=== PATIENT | male | born 1960 | race Caucasian/White ===

== ENCOUNTER 2019-02-07 12:01 | Day surgery (SDC) | payer OTHER | END 2019-02-07 16:30 | disposition home or self-care (01) | LOC: JASU-SURG 12:01 ==

== ENCOUNTER 2019-05-23 17:07 | Observation (INO) | payer BC, OTHER ==
[2019-05-23] MEDS ORDERED: ASPIRIN 81 MG CHEWABLE TABLETS PO ONE ×2 (17:44→19:43)
--- NOTE | 2019-05-23 17:44 | PDOC ---
Rapid Medical Evaluation Time Seen by Provider: 05/23/19 17:40 Medical Evaluation: Allergies Allergy/AdvReac Type Severity Reaction Status Date / Time No Known Allergies Allergy Verified 02/07/19 13:12 05/23/19 17:40 Pt presents to the ER after having an abnormal EKG in Dr. Gaines's office. The patient had chest pain yesterday which has since resolved. Took a baby aspirin this morning Exam: NAD, ambulatory. RRR S1S2, (-) m/r/g Orders; labs, ekg, cxr Pt to proceed to the ER for further evaluation Discharge Disposition - Diagnosis Abnormal EKG - Referrals - Patient Instructions - Post Discharge Activity
[2019-05-23 17:45] VITALS: BMI 28.6
[2019-05-23 18:37] LABS: BASO % 1.2 % (0-2.0); EOS % 5.6 % (0-4.5); HEMATOCRIT 43.5 % (35.4-49); HEMOGLOBIN 14.8 GM/dL (11.7-16.9); LYMPH % 28.6 % (8-40); MCH 33.7 pg (25.7-33.7); MEAN CELL VOLUME 99.2 fl (80-96); MEAN PLT VOLUME 8.9 fl (7.5-11.1); MONO % 8.1 % (3.8-10.2); NEUT % 56.5 % (42.8-82.8); PLATELET COUNT 251 K/MM3 (134-434); RBC 4.39 M/mm3 (4.00-5.60)
[2019-05-23 18:46] LABS: INR 0.97 (0.83-1.09); PROTHROMBIN TIME (PATIENT) 11.5 SEC (9.7-13.0)
[2019-05-23] MEDS ORDERED: ASPIRIN 81 MG CHEWABLE TABLETS ONE ×2 (18:58→19:53)
[2019-05-23 19:08] LABS: ALBUMIN 4.1 g/dl (3.4-5.0); ALK PHOS 83 U/L (45-117); ANION GAP 6 MMOL/L (8-16); BILIRUBIN,TOTAL 0.5 mg/dL (0.2-1); BLOOD UREA NITROGEN 16.6 mg/dL (7-18); CALCIUM 9.2 mg/dL (8.5-10.1); CHLORIDE 105 mmol/L (98-107); CO2 29 mmol/L (21-32); CREATININE 0.9 mg/dL (0.55-1.3); GLUCOSE,RANDOM 221 mg/dL (74-106); MAGNESIUM 2.6 mg/dL (1.8-2.4); POTASSIUM 4.5 mmol/L (3.5-5.1); SGOT/AST 25 U/L (15-37); SGPT/ALT 48 U/L (13-61); SODIUM 140 mmol/L (136-145); TOT PROT 6.7 g/dl (6.4-8.2)
--- NOTE | 2019-05-23 21:03 | PN ---
Teaching Attending Note Name of Resident: Ariana Howell ATTENDING PHYSICIAN STATEMENT I saw and evaluated the patient. I reviewed the resident's note and discussed the case with the resident. I agree with the resident's findings and plan as documented. SUBJECTIVE: Patient is a 59 year old man with PMH of HTN, HLD, Carpal tunnel syndrome, Insulin-treated DM (insulin pump) and Tobacco use sent from PCP's office to the ER for an abnormal EKG. Reportedly had chest pain yesterday. Since then, he has been pain free. Currently denies fever, URI symptoms, SOB, Abdominal pain, Headache, Dizziness, Nausea, Vomiting, Calf pain/swelling or dysuria. Had negative treadmill cardiac stress test in August 2018. Has FH of cancer, but no FH of premature CAD. OBJECTIVE: Alert Vital Signs Period Temp Pulse Resp BP Sys/South Pulse Ox Last 24 Hr 97.5 F-98.1 F 64-70 16-20 140-151/57-86 98-99 HEENT: No Jaundice, eye redness or discharge, PERRLA, EOMI. Normocephalic, atraumatic. External ears are normal and hearing is grossly intact. No nasal discharge. Neck: Supple, nontender. No palpable adenopathy or thyromegaly. No JVD Chest: Good effort. Clear to auscultation and percussion. Heart: Regular. No S3, rub or murmur Abdomen: Not distended, soft, nontender and no HSM. No rebound or guarding. Normal bowel sounds. Ext: Peripheral pulses intact. No leg edema. Skin: Warm and dry. No petechiae, rash or ecchymosis. Neuro: Alert. Oriented x3. CN 2-12 grossly intact. Sensation grossly intact in all four extremities and DTR are symmetric. Psych: Appropriate mood and affect. Good insight. Home Medications Medication Instructions Recorded Aspirin Coated [Ecotrin -] 81 mg PO DAILY 02/06/19 Atorvastatin Ca [Lipitor] 40 mg PO HS 02/06/19 Insulin Pump [Insulin Pump - (Nf)] 1 each NR TID 02/06/19 Metoprolol Succinate 50 mg PO DAILY 02/06/19 Multivitamin [One-Daily 1 each PO DAILY 02/06/19 Multi-Vitamin] [place]-3/Dha/Epa/Fish Oil [[place] 3 1 each PO DAILY 02/06/19 500 Softgel] Hydrocodone/Acetaminophen 1 each PO Q6H #20 tablet MDD 4 02/07/19 [Hydrocodone-Acetamin 5-325 mg] Lotrel 1 tab PO DAILY 02/07/19 Abnormal Lab Results 05/23/19 05/23/19 18:24 18:24 MCV 99.2 H Eosinophils % 5.6 H Anion Gap 6 L Random Glucose 221 H Magnesium 2.6 H ASSESSMENT AND PLAN: 1. Chest pain - Now pain free. Has risk factors for CAD. Has had a total of 324 mg Aspirin today. EKG from his PCP's office showed NSR with T wave inversion in leads III, aVF, V1-V4, while repeat EKG in the ER showed LBBB (?new - no other prior EKGs for comparison). Initial troponin is negative. No acute abnormality on CXR. Will admit to telemetry to rule out ACS, get ECHO, fasting lipids and consult Cardiology. Urinalysis and urine toxicology screen are pending. Will continue comprehensive care of all his comorbid conditions. Elevated serum magnesium likely iatrogenic - will repeat after adequate hydration. 2. DM For now, we will hold the home diabetes drugs and implement sliding scale insulin regimen. Provide comprehensive diabetes care with patient teaching and counseling about the importance of adherence to prescribed diabetes regimen, euglycemia, eye care and foot care. 3. Tobacco Use Counseled on risks associated with tobacco use. We will provide patient all the necessary assistance to facilitate smoking cessation and prescribe Nicotine patch. 4. Overweight Counseled on the risks associated with being overweight. Will provide patient all the necessary assistance, counseling and positive reinforcement to facilitate weight loss. Consult reinforcing bar setter. 5. Hypertension - Restart suitable outpatient antihypertensive drugs when clinically appropriate. Revise regimen to ensure [id number] excellent BP control and phone counselor patient on the injurious effects of uncontrolled hypertension. Nonpharmacologic measures to control hypertension like weight loss , salt restriction and exercise discussed. Importance of adherence to treatment regimen and attainment of normotension emphasized. 6. DVT prophylaxis - Lovenox 40 mg SQ q 24 hours. 7. Advance directives - Full code
--- NOTE | 2019-05-23 21:29 | PDOC ---
History of Present Illness - General Chief Complaint: Chest Pain Stated Complaint: SENT BY PCP Time Seen by Provider: 05/23/19 17:40 History Source: Patient Exam Limitations: No Limitations Past History - Past Medical History Allergies/Adverse Reactions: Allergies Allergy/AdvReac Type Severity Reaction Status Date / Time No Known Allergies Allergy Verified 05/23/19 17:41 Home Medications: Ambulatory Orders Aspirin Coated [Ecotrin -] 81 mg PO DAILY 02/06/19 Atorvastatin Ca [Lipitor] 40 mg PO HS 02/06/19 Insulin Pump [Insulin Pump - (Nf)] 1 each NR TID 02/06/19 Metoprolol Succinate 50 mg PO DAILY 02/06/19 Multivitamin [One-Daily Multi-Vitamin] 1 each PO DAILY 02/06/19 [place]-3/Dha/Epa/Fish Oil [[place] 3 500 Softgel] 1 each PO DAILY 02/06/19 Hydrocodone/Acetaminophen [Hydrocodone-Acetamin 5-325 mg] 1 each PO Q6H #20 tablet MDD 4 02/07/19 Lotrel 40 1 tab PO DAILY 02/07/19 Anemia: No Asthma: No Cancer: No Cardiac Disorders: No CVA: No COPD: No CHF: No Dementia: No Diabetes: Yes GI Disorders: No Disorders: No HTN: Yes Hypercholesterolemia: Yes Liver Disease: No Seizures: No Thyroid Disease: No - Surgical History Orthopedic Surgery: Yes (jacinto rotator cuff) - Immunization History Immunization Up to Date: No - Suicide/Smoking/Psychosocial Hx Smoking History: Current some day smoker Have you smoked in the past 12 months: Yes Number of Cigarettes Smoked Daily: 4 If you are a former smoker, when did you quit?: 2weeks Information on smoking cessation initiated: Yes 'Breaking Loose' booklet given: 02/07/19 Hx Alcohol Use: Yes Drug/Substance Use Hx: No Substance Use Type: Alcohol Hx Substance Use Treatment: No Cardiac Specific PMH - Complaint Specific PMHX Pacemaker: No *Physical Exam - Vital Signs Last Vital Signs Temp Pulse Resp BP Pulse Ox 98.0 F 65 20 151/65 99 05/23/19 20:31 05/23/19 20:31 05/23/19 20:31 05/23/19 20:31 05/23/19 20:31 - Physical Exam General Appearance: No: Apparent Distress Respiratory/Chest: positive: Lungs Clear, Normal Breath Sounds. negative: Respiratory Distress Cardiovascular: positive: Regular Rhythm, Regular Rate, S1, S2. negative: Murmur Gastrointestinal/Abdominal: positive: Normal Bowel Sounds, Soft. negative: Tender, Distended, Guarding, Rebound Extremity: negative: Pedal Edema, Swelling, Calf Tenderness Neurologic: positive: Alert, Normal Mood/Affect Heart Score/ECG Review - History History: Slightly suspicious - Electrocardiogram EKG: Non specific repolarization disturbance - Age Age: 45-65 - Risk Factors Risk Factors Heart Score: Yes Hx Hypercholesterolemia, Yes Hx Hypertension, Yes Hx Diabetes Based on the list above the patient has:: >/=3 risk factors or Hx atherosclerotic disease - Troponin Troponin: </= normal limit - Score Heart Score - Total: 4 ED Treatment Course - LABORATORY CBC & Chemistry Diagram: 05/23/19 18:24 05/23/19 18:24 - ADDITIONAL ORDERS Additional order review: Laboratory Results 05/23/19 05/23/19 18:24 18:24 PT with INR 11.50 INR 0.97 Sodium 140 Potassium 4.5 Chloride 105 Carbon Dioxide 29 Anion Gap 6 L BUN 16.6 Creatinine 0.9 Est GFR (CKD-EPI)AfAm 108.73 Est GFR (CKD-EPI)NonAf 93.82 Random Glucose 221 H Calcium 9.2 Magnesium 2.6 H Total Bilirubin 0.5 AST 25 ALT 48 Alkaline Phosphatase 83 Creatine Kinase 101 Troponin I < 0.02 Total Protein 6.7 Albumin 4.1 05/23/19 18:24 RBC 4.39 MCV 99.2 H MCHC 34.0 RDW 13.0 MPV 8.9 Neutrophils % 56.5 Lymphocytes % 28.6 Monocytes % 8.1 Eosinophils % 5.6 H Basophils % 1.2 - RADIOLOGY Radiology Studies Ordered: Category Date Time Status CHEST PA & LAT [RAD] Stat Radiology 05/23/19 19:03 Taken - Medications Given in the ED: ED Medications Discontinued Medications Generic Name Dose Route Start Last Admin Trade Name Freq PRN Reason Stop Dose Admin Aspirin 162 mg 05/23/19 17:44 05/23/19 19:07 Asa - PO 05/23/19 17:45 162 mg ONCE ONE Administration Aspirin 81 mg 05/23/19 19:43 05/23/19 19:56 Asa - PO 05/23/19 19:44 81 mg ONCE ONE Administration Medical Decision Making - Medical Decision Making 59 y/o N hx of HTN, HLD, T1DM, former smoker (quit this year; sates was off and on for several years) was sent by his PCP, Dr. Gaines for abnormal EKG performed in office today. Patient mentions having brief episode of substernal, nonradiating CP 2 days ago, while using computer. Then, had another episode yesterday. Since then, he has been CP free. Currently denies fever, URI sxs, sob , abd pain, n/v, calf pain/swelling. Had negative stress test Aug [address] Gaines: NSR at 68 bpm, TWI lead III, aVF, V3-V4 (no other prior EKGs to compare to) Repeat EKG here: NSR at 68 bpm Trop negative Patient with new LBBB D/W cardio, Dr. Almanzar - recommends admission for now given patient chest pain free and trop negative; will see patient inhouse Patient took 1 baby ASA at home and received 3 baby ASA in ED 05/23/19 21:27 *DC/Admit/Observation/Transfer Diagnosis at time of Disposition: Abnormal EKG Chest pain Qualifiers: Chest pain type: unspecified Qualified Code(s): R07.9 - Chest pain, unspecified - Discharge Dispostion Condition at time of disposition: Stable Decision to Admit order: Yes - Referrals - Patient Instructions - Post Discharge Activity
[2019-05-23] MEDS ORDERED: ATORVASTATIN CA 40 MG TABLET (FP) PO SCH (22:00)
--- NOTE | 2019-05-23 22:43 | HP ---
CHIEF COMPLAINT: chest pain, EKG changes PCP:Dr Gaines HISTORY OF PRESENT ILLNESS: Patient is a 59 year old male with past medical history of HTN, HLD, IDDM, Psoriasis, presented to the ED from his PCP's office for chest pain and was found to have abnormal EKG changes. Patient reported experiencing chest pain two days ago which he described as substernal, 10/10 chest tightness, lasting a few seconds, that occurred at rest. A second episode occurred yesterday of the same quality. Today, he was seen at his Dr. Gaines's office for his routine follow up where he reported the chest pain, and EKG was done which showed TWI lead III, aVF, V3-V4. At the ED, EKG was done which showed LBBB. Of note, patient reported that he had a stress test done in Aug 2018 because he was found to have an LBBB on EKG. Stress test was reported to be normal. ER course was notable for: (1)ASA 243mg x1 (2) (3) Recent Travel: denies PAST MEDICAL HISTORY: HTN HLD IDDM Psoriasis PAST SURGICAL HISTORY: Left knee repair B/L shoulder repair Social History: Smokin pack years Alcohol:occasional EtOH drinker Drugs: denies Family History: Father - prostate CA Mother - Breast Ca, Colon Ca Allergies No Known Allergies Allergy (Verified 05/23/19 17:41) HOME MEDICATIONS: Home Medications Medication Instructions Recorded Aspirin Coated [Ecotrin -] 81 mg PO DAILY 02/06/19 Metoprolol Succinate 50 mg PO DAILY 02/06/19 Multivitamin [One-Daily 1 each PO DAILY 02/06/19 Multi-Vitamin] [place]-3/Dha/Epa/Fish Oil [[place] 3 1 each PO DAILY 02/06/19 500 Softgel] REVIEW OF SYSTEMS CONSTITUTIONAL: Absent: fever, chills, diaphoresis, generalized weakness, malaise, loss of appetite, weight change HEENT: Absent: rhinorrhea, nasal congestion, throat pain, throat swelling, difficulty swallowing, mouth swelling, ear pain, eye pain, visual changes CARDIOVASCULAR: Absent: chest pain, syncope, palpitations, irregular heart rate, lightheadedness , peripheral edema RESPIRATORY: Absent: cough, shortness of breath, dyspnea with exertion, orthopnea, wheezing, stridor, hemoptysis GASTROINTESTINAL: Absent: abdominal pain, abdominal distension, nausea, vomiting, diarrhea, constipation, melena, hematochezia GENITOURINARY: Absent: dysuria, frequency, urgency, hesitancy, hematuria, flank pain, genital pain MUSCULOSKELETAL: Absent: myalgia, arthralgia, joint swelling, back pain, neck pain SKIN: Absent: rash, itching, pallor HEMATOLOGIC/IMMUNOLOGIC: Absent: easy bleeding, easy bruising, lymphadenopathy, frequent infections ENDOCRINE: Absent: unexplained weight gain, unexplained weight loss, heat intolerance, cold intolerance NEUROLOGIC: Absent: headache, focal weakness or paresthesias, dizziness, unsteady gait, seizure, mental status changes, bladder or bowel incontinence PSYCHIATRIC: Absent: anxiety, depression, suicidal or homicidal ideation, hallucinations. PHYSICAL EXAMINATION Vital Signs - 24 hr 05/23/19 05/23/19 05/23/19 17:41 19:09 19:44 Temperature 98.1 F 97.5 F L Pulse Rate 70 Pulse Rate [ 64 Left Apical] Respiratory 16 Rate Blood Pressure 140/57 L Blood Pressure 144/86 [Left Arm] O2 Sat by Pulse 98 99 99 Oximetry (%) 05/23/19 20:31 Temperature 98.0 F Pulse Rate Pulse Rate [ 65 Left Apical] Respiratory 20 Rate Blood Pressure Blood Pressure 151/65 [Left Arm] O2 Sat by Pulse 99 Oximetry (%) GENERAL: Awake, alert, and fully oriented, in no acute distress. HEAD: Normal with no signs of trauma. EYES: PERRLA, EOMI, sclera anicteric, conjunctiva clear. EARS, NOSE, THROAT: Moist mucous membranes. NECK: Normal range of motion, supple without lymphadenopathy, JVD, or masses. LUNGS: Breath sounds equal, clear to auscultation bilaterally. HEART: Regular rate and rhythm, normal S1 and S2 without murmur, rub or gallop. ABDOMEN: Soft, nontender, not distended, normoactive bowel sounds. MUSCULOSKELETAL: Normal range of motion at all joints. UPPER EXTREMITIES: 2+ pulses, warm, well-perfused. No peripheral edema. LOWER EXTREMITIES: 2+ pulses, warm, well-perfused. No peripheral edema. NEUROLOGICAL: Cranial nerves II-XII intact. Normal speech. Normal gait. PSYCHIATRIC: Cooperative. Good eye contact. Appropriate mood and affect. SKIN: Warm, dry, normal turgor. Laboratory Results - last 24 hr 05/23/19 05/23/19 05/23/19 18:24 18:24 18:24 WBC 9.0 RBC 4.39 Hgb 14.8 Hct 43.5 MCV 99.2 H MCH 33.7 MCHC 34.0 RDW 13.0 Plt Count 251 MPV 8.9 Absolute Neuts (auto) 5.1 Neutrophils % 56.5 Lymphocytes % 28.6 Monocytes % 8.1 Eosinophils % 5.6 H Basophils % 1.2 Nucleated RBC % 0 PT with INR 11.50 INR 0.97 Sodium 140 Potassium 4.5 Chloride 105 Carbon Dioxide 29 Anion Gap 6 L BUN 16.6 Creatinine 0.9 Est GFR (CKD-EPI)AfAm 108.73 Est GFR (CKD-EPI)NonAf 93.82 Random Glucose 221 H Calcium 9.2 Magnesium 2.6 H Total Bilirubin 0.5 AST 25 ALT 48 Alkaline Phosphatase 83 Creatine Kinase 101 Troponin I < 0.02 Total Protein 6.7 Albumin 4.1 ASSESSMENT/PLAN: Patient is a 59 year old male with past medical history of HTN, HLD, IDDM, Psoriasis, presented to the ED from his PCP's office for chest pain and was found to have abnormal EKG changes. #Chest pain, rule out ACS -Trop <0.02 x1 -EKG showing LBBB, different from EKG at PCP office -will repeat EKG in am -Received ASA 324mg today -Cardiology (Dr. Almanzar) consulted. Recommendations appreciated. -will continue to monitor on tele -trend trop -continue ASA 81mg daily and Toprol XL 50mg daily #HTN -On Metoprolol 50mg daily #HLD -Continue Lipitor 40mg daily #IDDM -BGM ACHS -Patient prefers to be on Insulin pump #FEN -Not on any standing fluids -Electrolytes wnl, routine bmp monitoring -Diabetic/sodium restricted diet #Prophylaxis -Lovenox 40mg sq daily #Disposition -full code -tele obs Visit type - Emergency Visit Emergency Visit: Yes ED Registration Date: 05/23/19 Care time: The patient presented to the Emergency Department on the above date and was hospitalized for further evaluation of their emergent condition. - New Patient This patient is new to me today: Yes Date on this admission: 05/23/19 - Critical Care Critical Care patient: No ATTENDING PHYSICIAN STATEMENT I saw and evaluated the patient. I reviewed the resident's note and discussed the case with the resident. I agree with the resident's findings and plan as documented. SUBJECTIVE: OBJECTIVE: ASSESSMENT AND PLAN:
[2019-05-23] MEDS ORDERED: ATORVASTATIN CA 40 MG TABLET (FP) ONE (23:41)
[2019-05-23] MEDS ORDERED: DEXTROSE 50%-WATER - 25 GM/50 ML VIAL IVPUSH ONE (23:50)
[2019-05-23] MEDS ORDERED: DEXTROSE 50%-WATER 25 GM/50 ML DISP.SYRIN ONE (23:52)
[2019-05-24 07:32] LABS: BASO % 0.7 % (0-2.0); HEMATOCRIT 42.4 % (35.4-49); HEMOGLOBIN 14.5 GM/dL (11.7-16.9); LYMPH % 20.6 % (8-40); MCH 33.9 pg (25.7-33.7); MCHC 34.2 g/dl (32.0-35.9); MEAN PLT VOLUME 8.7 fl (7.5-11.1); MONO % 7.3 % (3.8-10.2); NEUT % 67.4 % (42.8-82.8); PLATELET COUNT 221 K/MM3 (134-434); RBC 4.28 M/mm3 (4.00-5.60); RDW 13.1 % (11.9-15.9); WHITE BLOOD COUNT 9.3 K/mm3 (4.0-10.0)
[2019-05-24 07:36] LABS: ANION GAP 8 MMOL/L (8-16); BLOOD UREA NITROGEN 13.9 mg/dL (7-18); CALCIUM 8.7 mg/dL (8.5-10.1); CHLORIDE 103 mmol/L (98-107); CO2 26 mmol/L (21-32); CREATININE 0.7 mg/dL (0.55-1.3); GLUCOSE,RANDOM 305 mg/dL (74-106); MAGNESIUM 2.3 mg/dL (1.8-2.4); PHOSPHOROUS 2.6 mg/dL (2.5-4.9); POTASSIUM 4.5 mmol/L (3.5-5.1); SODIUM 137 mmol/L (136-145)
[2019-05-24] MEDS ORDERED: INSULIN (NOVOLOG) ASPART 100 UNITS/ML 10ML VIAL ONE (09:23)
[2019-05-24] MEDS ORDERED: ASPIRIN COATED 81 MG TABLET.EC PO SCH (10:00)
[2019-05-24] MEDS ORDERED: ENOXAPARIN NA (PORCINE) 40 MG/0.4 ML DISP.SYRIN SQ SCH (10:00)
[2019-05-24] MEDS ORDERED: INSULIN (NOVOLOG) ASPART 100 UNITS/ML 10ML VIAL SQ ONE ×2 (10:35→11:33)
--- NOTE | 2019-05-24 11:39 | PN ---
Progress Note, Physician Chief Complaint: patient seen and examined no more chest pressure since admission wants to go home bgm noted insulin ordered insulin pump not working - Current Medication List Current Medications: Active Medications Aspirin (Ecotrin -) 81 mg PO DAILY [facility] Atorvastatin Calcium (Lipitor -) 40 mg PO HS [facility] Last Admin: 05/24/19 00:02 Dose: 40 mg Enoxaparin Sodium (Lovenox -) 40 mg SQ DAILY [facility] Insulin Aspart (Novolog Vial) 6 units SQ ONCE ONE; Protocol Stop: 05/24/19 11:34 Metoprolol Succinate (Toprol Xl -) 50 mg PO DAILY [facility] - Objective Vital Signs: Vital Signs Temperature 97.6 F 05/24/19 09:27 Pulse Rate 83 05/24/19 09:27 Respiratory Rate 18 05/24/19 05:34 Blood Pressure 160/79 05/24/19 09:27 O2 Sat by Pulse Oximetry (%) 96 05/24/19 09:27 Constitutional: Yes: Calm Cardiovascular: Yes: Regular Rate and Rhythm, S1, S2 Respiratory: Yes: CTA Bilaterally Gastrointestinal: Yes: Normal Bowel Sounds, Soft Edema: No Neurological: Yes: Alert, Oriented Labs: CBC, BMP 05/24/19 06:20 05/24/19 06:20 INR, PTT INR 0.97 (0.83-1.09) 05/23/19 18:24 Problem List - Problems (1) Abnormal EKG Assessment/Plan: awaiting cardiology consult CE 3 sets negative patient claims he hada recent stress test with his hotel services supervisor at [facility] asa, statin Code(s): R94.31 - ABNORMAL ELECTROCARDIOGRAM [ECG] [EKG] (2) Chest pain Assessment/Plan: toprol cardiology consult Code(s): R07.9 - CHEST PAIN, UNSPECIFIED Qualifiers: Chest pain type: unspecified Qualified Code(s): R07.9 - Chest pain, unspecified (3) Diabetes Assessment/Plan: insulin pump not working novolog ordered Code(s): E11.9 - TYPE 2 DIABETES MELLITUS WITHOUT COMPLICATIONS Qualifiers: Diabetes mellitus type: type 1
[2019-05-24 12:36] VITALS: BP 132/81; PULSE 87; TEMP 98.5
--- NOTE | 2019-05-24 13:26 | DS ---
Physical Examination Vital Signs: Vital Signs Temperature 98.5 F 05/24/19 12:34 Pulse Rate 87 05/24/19 12:34 Respiratory Rate 15 05/24/19 09:00 Blood Pressure 132/81 05/24/19 12:34 O2 Sat by Pulse Oximetry (%) 96 05/24/19 12:34 Constitutional: Yes: Calm Cardiovascular: Yes: Regular Rate and Rhythm, S1, S2 Respiratory: Yes: CTA Bilaterally Gastrointestinal: Yes: Normal Bowel Sounds, Soft Edema: No Neurological: Yes: Alert, Oriented Labs: CBC, BMP 05/24/19 06:20 05/24/19 06:20 Discharge Summary Reason For Visit: ABNORMAL ELECTROCARIOGRAPHY/CHEST PAIN Current Active Problems Abnormal EKG (Acute) Chest pain (Acute) Diabetes (Acute) Hospital Course: CHIEF COMPLAINT: chest pain, EKG changes PCP:Dr Gaines HISTORY OF PRESENT ILLNESS: Patient is a 59 year old male with past medical history of HTN, HLD, IDDM, Psoriasis, presented to the ED from his PCP's office for chest pain and was found to have abnormal EKG changes. Patient reported experiencing chest pain two days ago which he described as substernal, 10/10 chest tightness, lasting a few seconds, that occurred at rest. A second episode occurred yesterday of the same quality. Today, he was seen at his Dr. Gaines's office for his routine follow up where he reported the chest pain, and EKG was done which showed TWI lead III, aVF, V3-V4. At the ED, EKG was done which showed LBBB. Of note, patient reported that he had a stress test done in Aug 2018 because he was found to have an LBBB on EKG. Stress test was reported to be normal. ER course was notable for: (1)ASA 243mg x1 seen by cardiology dc home Condition: Stable - Instructions Disposition: HOME - Home Medications Comprehensive Discharge Medication List: Ambulatory Orders Aspirin Coated [Ecotrin -] 81 mg PO DAILY 02/06/19 Metoprolol Succinate 50 mg PO DAILY 02/06/19 Multivitamin [One-Daily Multi-Vitamin] 1 each PO DAILY 02/06/19 [place]-3/Dha/Epa/Fish Oil [[place] 3 500 Softgel] 1 each PO DAILY 02/06/19
--- NOTE | 2019-05-24 14:31 | CON.CARD ---
Consult Consult Specialty:: Cardiology Referred by:: Ksenia Reason for Consultation:: chest pain - History of Present Illness Chief Complaint: chest pain History of Present Illness: He is a 59 year old man with a history of HTN, NIDDM, chol, psoriasis, known intermittent LBBB with normal stress test at [facility] august 2018 who was sent for brief right sternal chest pain without associated symptoms, felt like a "flip." Noted with abnormal T waves. No recurrence. TnI negative x 2. - History Source History Provided By: Patient, Medical Record - Alcohol/Substance Use Hx Alcohol Use: Yes - Smoking History Smoking history: Current some day smoker Have you smoked in the past 12 months: Yes Aproximately how many cigarettes per day: 4 If you are a former smoker, when did you quit?: 2weeks Home Medications - Allergies Allergies/Adverse Reactions: Allergies Allergy/AdvReac Type Severity Reaction Status Date / Time No Known Allergies Allergy Verified 05/23/19 17:41 - Home Medications Home Medications: Ambulatory Orders Aspirin Coated [Ecotrin -] 81 mg PO DAILY 02/06/19 Metoprolol Succinate 50 mg PO DAILY 02/06/19 Multivitamin [One-Daily Multi-Vitamin] 1 each PO DAILY 02/06/19 [place]-3/Dha/Epa/Fish Oil [[place] 3 500 Softgel] 1 each PO DAILY 02/06/19 Atorvastatin Ca [Lipitor] 40 mg PO HS #30 tablet 05/24/19 Vital Signs: Vital Signs Temperature 98.5 F 05/24/19 12:34 Pulse Rate 87 05/24/19 12:34 Respiratory Rate 15 05/24/19 09:00 Blood Pressure 132/81 05/24/19 12:34 O2 Sat by Pulse Oximetry (%) 96 05/24/19 12:34 Constitutional: Yes: No Distress, Calm Eyes: Yes: Conjunctiva Clear, EOM Intact HENT: Yes: Atraumatic, Normocephalic Neck: Yes: Trachea Midline Respiratory: Yes: CTA Bilaterally Gastrointestinal: Yes: Normal Bowel Sounds, Soft Cardiovascular: Yes: Regular Rate and Rhythm JVD: No Carotid Bruit: No PMI: Non-Displaced Heart Sounds: Yes: S1, S2 Edema: No Peripheral Pulses WNL: Yes - Other Data Labs, Other Data: CBC, BMP 05/24/19 06:20 05/24/19 06:20 INR, PTT INR 0.97 (0.83-1.09) 05/23/19 18:24 Troponin, BNP 05/23/19 05/24/19 05/24/19 18:24 01:42 06:20 Troponin I < 0.02 < 0.02 < 0.02 Troponin, BNP 05/23/19 05/24/19 05/24/19 18:24 01:42 06:20 Troponin I < 0.02 < 0.02 < 0.02 Imaging - Results EKG: Report Reviewed Assessment/Plan He is a 59 year old man with a history of HTN, NIDDM, chol, psoriasis, known intermittent LBBB with normal stress test at [facility] august 2018 who was sent for brief right sternal chest pain without associated symptoms, felt like a "flip." Noted with abnormal T waves. No recurrence. TnI negative x 2. Plan: -no ACS -given recent normal nuclear stress test would defer workup. -symptoms are atypical for CAD. -fu as outpatient with Erickson
--- NOTE | 2019-05-24 15:29 | EKG ---
Test Reason : Blood Pressure : / mmHG Vent. Rate : 068 BPM Atrial Rate : 068 BPM P-R Int : 186 ms QRS Dur : 164 ms QT Int : 462 ms P-R-T Axes : 048 -57 106 degrees QTc Int : 491 ms NORMAL SINUS RHYTHM POSSIBLE LEFT ATRIAL ENLARGEMENT LEFT AXIS DEVIATION LEFT BUNDLE BRANCH BLOCK ABNORMAL ECG NO PREVIOUS ECGS AVAILABLE Confirmed by JEFF HAYNES MD ([id number]) on 05/24/2019 3:29:09 PM Referred By: Confirmed By:JEFF HAYNES MD
== END 2019-05-24 14:00 | disposition home or self-care (01) ==
LOC: JER 17:07 → JERBED 21:33
PROVIDERS: ADMIT Internal Medicine; ATTEND Family Medicine
PROC: 3E033GC Introduction of Other Therapeutic Substance into Peripheral Vein, Percutaneous Approach (ICD-10-PCS; principal; 2019-05-23)
PROC: 3E013VG Introduction of Insulin into Subcutaneous Tissue, Percutaneous Approach (ICD-10-PCS; 2019-05-23)
DX: R94.31 Abnormal electrocardiogram [ECG] [EKG] (principal); R07.89 Other chest pain; I10 Essential (primary) hypertension; E78.5 Hyperlipidemia, unspecified; E11.9 Type 2 diabetes mellitus without complications; Z96.41 Presence of insulin pump (external) (internal); F17.210 Nicotine dependence, cigarettes, uncomplicated; E66.3 Overweight; Z68.28 Body mass index [BMI] 28.0-28.9, adult
CPT/HCPCS: 36415; 71046-TC-FY; 80048; 80053; 82550; 82962; 83735; 84100; 84443; 84484; 85025; 85610; 93005; 93010; 99285-25; G0378

== ENCOUNTER 2022-02-01 13:14 | Emergency (ER) | payer BC ==
[2022-02-01 13:57] VITALS: BP 158/72; PULSE 96; TEMP 98; BMI 30.2
[2022-02-01] MEDS ORDERED: PIPERACILLIN/TAZOB 4.5 GM 4.5 GM in DEXTROSE 5%-WATER 100 ML IVPB ONE (16:05)
[2022-02-01] MEDS ORDERED: ACETAMINOPHEN 1000 MG/100 ML BAG IVPB ONE (16:05)
[2022-02-01] MEDS ORDERED: VANCOMYCIN 1 GM in D5W (PRE-DOCKED) 1,000 MG/250 ML IVPB ONE (16:06)
[2022-02-01] MEDS ORDERED: PIPERACILLIN/TAZOB 4.5 GM 4.5 GM/100 ML BAG IVPB ONE (16:12)
[2022-02-01] MEDS ORDERED: ACETAMINOPHEN INJECTION 100 ML IVPB ONE (16:12)
[2022-02-01] MEDS ORDERED: VANCOMYCIN 1 GRAM (PRE-DOCKED) 1,000 MG/250 ML BAG IVPB ONE (16:13)
[2022-02-01 18:00] LABS: BASO % 0.6 % (0-2.0); EOS % 1.8 % (0-4.5); HEMATOCRIT 41.9 % (35.4-49); HEMOGLOBIN 14.3 GM/dL (11.7-16.9); LYMPH % 11.2 % (8-40); MCH 33.6 pg (25.7-33.7); MCHC 34.1 g/dl (32.0-35.9); MEAN CELL VOLUME 98.5 fl (80-96); MEAN PLT VOLUME 8.8 fl (7.5-11.1); MONO % 7.2 % (3.8-10.2); NEUT % 79.2 % (42.8-82.8); PLATELET COUNT 246 10^3/uL (134-434); RBC 4.25 M/mm3 (4.00-5.60); RDW 13.1 % (11.9-15.9); WHITE BLOOD COUNT 13.1 K/mm3 (4.0-10.0)
[2022-02-01 18:21] LABS: CHLORIDE 107 mmol/L (98-107); SODIUM 138 mmol/L (136-145)
[2022-02-01 18:23] LABS: CALCIUM 9.3 mg/dL (8.5-10.1)
[2022-02-01 18:24] LABS: ACTIVATED PTT 22.7 SECONDS (25.2-36.5); ALBUMIN 3.8 g/dl (3.4-5.0); BLOOD UREA NITROGEN 19.2 mg/dL (7-18); CO2 27 mmol/L (21-32); GLUCOSE,RANDOM 99 mg/dL (74-106); INR 0.98 (0.83-1.09); PROTHROMBIN TIME (PATIENT) 11.3 SEC (9.7-13.0)
[2022-02-01 18:27] LABS: CREATININE 0.9 mg/dL (0.55-1.3); SGOT/AST 70 U/L (15-37); SGPT/ALT 29 U/L (13-61)
[2022-02-01 18:28] LABS: TOT PROT 7.5 g/dl (6.4-8.2)
[2022-02-01 18:29] LABS: BILIRUBIN,TOTAL 0.8 mg/dL (0.2-1)
[2022-02-01 18:30] LABS: ALK PHOS 93 U/L (45-117)
[2022-02-01 18:32] LABS: ANION GAP 4 MMOL/L (8-16)
[2022-02-01 18:39] LABS: ERYTHROCYTE SEDIMENTATION RATE 25 mm/hr (0-20)
[2022-02-01 19:51] LABS: CALCIUM 8.9 mg/dL (8.5-10.1)
[2022-02-01 19:52] LABS: BLOOD UREA NITROGEN 19.3 mg/dL (7-18)
[2022-02-01 19:55] LABS: CREATININE 0.8 mg/dL (0.55-1.3)
== END 2022-02-01 20:11 | disposition left against medical advice (07) ==
LOC: JER 13:14
PROC: 3E03329 Introduction of Other Anti-infective into Peripheral Vein, Percutaneous Approach (ICD-10-PCS; principal; 2022-02-01)
PROC: 3E033NZ Introduction of Analgesics, Hypnotics, Sedatives into Peripheral Vein, Percutaneous Approach (ICD-10-PCS; 2022-02-01)
PROC: 3E03329 Introduction of Other Anti-infective into Peripheral Vein, Percutaneous Approach (ICD-10-PCS; 2022-02-01)
DX: L03.115 Cellulitis of right lower limb (principal); S91.331A Puncture wound without foreign body, right foot, initial encounter
CPT/HCPCS: 0241U-QW; 36415; 73630-TC-RT-FY; 80048; 80053; 85025; 85610; 85651; 85730; 86140; 86850; 86900; 86901; 87040; 99284-25

== ENCOUNTER 2022-02-02 11:02 | Inpatient (IN) | payer BC ==
[2022-02-02] MEDS ORDERED: PIPERACILLIN/TAZOB 4.5 GM 4.5 GM in DEXTROSE 5%-WATER 100 ML IVPB ONE (12:30)
[2022-02-02] MEDS ORDERED: VANCOMYCIN 1 GM in D5W (PRE-DOCKED) 1,000 MG/250 ML IVPB ONE (12:30)
[2022-02-02] MEDS ORDERED: VANCOMYCIN 1 GRAM (PRE-DOCKED) 1,000 MG/250 ML BAG IVPB ONE (12:34)
[2022-02-02] MEDS ORDERED: PIPERACILLIN/TAZOB 4.5 GM 4.5 GM/100 ML BAG IVPB ONE (12:34)
[2022-02-02 13:13] LABS: BASO % 0.4 % (0-2.0); EOS % 1.2 % (0-4.5); HEMATOCRIT 37.9 % (35.4-49); HEMOGLOBIN 12.7 GM/dL (11.7-16.9); LYMPH % 11.9 % (8-40); MCH 33.3 pg (25.7-33.7); MCHC 33.6 g/dl (32.0-35.9); MEAN CELL VOLUME 98.9 fl (80-96); MEAN PLT VOLUME 8.5 fl (7.5-11.1); MONO % 8.1 % (3.8-10.2); NEUT % 78.4 % (42.8-82.8); PLATELET COUNT 214 10^3/uL (134-434); RBC 3.83 M/mm3 (4.00-5.60); RDW 12.8 % (11.9-15.9); WHITE BLOOD COUNT 12.4 K/mm3 (4.0-10.0)
[2022-02-02 13:31] LABS: ALBUMIN 3.3 g/dl (3.4-5.0)
[2022-02-02 13:34] LABS: CREATININE 0.9 mg/dL (0.55-1.3)
[2022-02-02 13:36] LABS: BILIRUBIN,TOTAL 0.5 mg/dL (0.2-1); TOT PROT 6.3 g/dl (6.4-8.2)
[2022-02-02] MEDS ORDERED: KETOROLAC TROMETHAMINE 30 MG/1 ML VIAL ONE (16:49)
[2022-02-02] MEDS: KETOROLAC TROMETHAMINE 30 MG/1 ML VIAL IVPUSH PRN (16:49)
[2022-02-02] MEDS ORDERED: HEPARIN NA (PORCINE) 5,000 UNITS/ML 1ML VIAL SQ SCH (22:00)
[2022-02-02] MEDS: INSULIN SLIDING SCALE (NOVOLOG) 1 VIAL SQ SCH (23:04)
[2022-02-03] MEDS ORDERED: HEPARIN NA (PORCINE) 5,000 UNITS/ML 1ML VIAL ONE (00:12)
[2022-02-03] MEDS ORDERED: HYDROmorphone HCl 2 MG/ML VIAL ONE (07:45)
[2022-02-03 07:46] LABS: HEMATOCRIT 35.9 % (35.4-49); HEMOGLOBIN 12.8 GM/dL (11.7-16.9); MCH 34.2 pg (25.7-33.7); MCHC 35.5 g/dl (32.0-35.9); MEAN CELL VOLUME 96.4 fl (80-96); MEAN PLT VOLUME 8.5 fl (7.5-11.1); PLATELET COUNT 199 10^3/uL (134-434); RBC 3.73 M/mm3 (4.00-5.60); RDW 12.6 % (11.9-15.9); WHITE BLOOD COUNT 8.2 K/mm3 (4.0-10.0)
[2022-02-03] MEDS: HYDROmorphone HCl 2 MG/ML VIAL IVPB PRN (07:52)
[2022-02-03 08:13] LABS: ALBUMIN 3.1 g/dl (3.4-5.0); BLOOD UREA NITROGEN 12.9 mg/dL (7-18); CALCIUM 8.6 mg/dL (8.5-10.1)
[2022-02-03 08:17] LABS: CREATININE 0.5 mg/dL (0.55-1.3)
[2022-02-03 08:18] LABS: BILIRUBIN,TOTAL 0.8 mg/dL (0.2-1)
[2022-02-03] MEDS ORDERED: TETANUS AND DIPHTHERIA TOXOID 0.5 ML DISP.SYRIN IM ONE (08:53)
[2022-02-03] MEDS: INSULIN SLIDING SCALE (NOVOLOG) 1 VIAL SQ SCH ×4 (09:01→21:30)
[2022-02-03] MEDS ORDERED: PIPERACILLIN/TAZOB 3.375 GM 3.375 GM in DEXTROSE 5%-WATER - 50 ML IVPB SCH (10:00)
[2022-02-03] MEDS ORDERED: PIPERACILLIN/TAZOBACTAM 3.375 GM VIAL IVPB ONE (10:16)
[2022-02-03] MEDS ORDERED: DEXTROSE 5%-WATER - 50 ML IVPB ONE (10:17)
[2022-02-03 11:00] VITALS: BMI 29.5
[2022-02-03] MEDS: VANCOMYCIN/WATER 1250 MG 1,250 MG/250 ML BAG IVPB SCH (17:09)
[2022-02-03] MEDS ORDERED: DEXTROSE 5%-WATER 100 ML IVPB ONE ×2 (18:17→18:18)
[2022-02-03] MEDS ORDERED: PIPERACILLIN/TAZOBACTAM 4.5 GM VIAL IVPB ONE ×2 (18:17→18:18)
[2022-02-03] MEDS: PIPERACILLIN/TAZOB 4.5 GM 4.5 GM in DEXTROSE 5%-WATER 100 ML IVPB SCH (18:24)
[2022-02-03] MEDS: KETOROLAC TROMETHAMINE 30 MG/1 ML VIAL IVPUSH PRN (21:29)
[2022-02-03] MEDS: ATORVASTATIN CA 40 MG TABLET (FP) PO SCH (21:30)
[2022-02-04] MEDS ORDERED: PIPERACILLIN/TAZOBACTAM 4.5 GM VIAL IVPB ONE ×3 (01:00→17:33)
[2022-02-04] MEDS ORDERED: DEXTROSE 5%-WATER 100 ML IVPB ONE ×3 (01:01→17:33)
[2022-02-04] MEDS: PIPERACILLIN/TAZOB 4.5 GM 4.5 GM in DEXTROSE 5%-WATER 100 ML IVPB SCH ×3 (01:50→17:47)
[2022-02-04] MEDS: INSULIN SLIDING SCALE (NOVOLOG) 1 VIAL SQ SCH ×4 (06:33→22:39)
[2022-02-04] MEDS ORDERED: INSULIN (NOVOLOG) ASPART 100 UNITS/ML 10ML VIAL ONE (06:40)
[2022-02-04] MEDS: VANCOMYCIN/WATER 1250 MG 1,250 MG/250 ML BAG IVPB SCH (13:42)
[2022-02-04] MEDS: HYDROmorphone HCl 2 MG/ML VIAL IVPB PRN (22:40)
[2022-02-04] MEDS: ATORVASTATIN CA 40 MG TABLET (FP) PO SCH (22:46)
[2022-02-05] MEDS ORDERED: DEXTROSE 5%-WATER 100 ML IVPB ONE ×3 (02:11→16:59)
[2022-02-05] MEDS ORDERED: PIPERACILLIN/TAZOBACTAM 4.5 GM VIAL IVPB ONE ×3 (02:11→16:59)
[2022-02-05] MEDS: PIPERACILLIN/TAZOB 4.5 GM 4.5 GM in DEXTROSE 5%-WATER 100 ML IVPB SCH ×3 (02:17→17:13)
[2022-02-05] MEDS: INSULIN SLIDING SCALE (NOVOLOG) 1 VIAL SQ SCH ×3 (06:19→21:22)
[2022-02-05 09:38] LABS: BASO % 0.9 % (0-2.0); EOS % 2.3 % (0-4.5); HEMATOCRIT 41.8 % (35.4-49); HEMOGLOBIN 14.4 GM/dL (11.7-16.9); LYMPH % 12.1 % (8-40); MCH 33.4 pg (25.7-33.7); MCHC 34.4 g/dl (32.0-35.9); MEAN CELL VOLUME 96.9 fl (80-96); MEAN PLT VOLUME 8.4 fl (7.5-11.1); MONO % 7.3 % (3.8-10.2); NEUT % 77.4 % (42.8-82.8); PLATELET COUNT 252 10^3/uL (134-434); RBC 4.31 M/mm3 (4.00-5.60); RDW 12.7 % (11.9-15.9); WHITE BLOOD COUNT 10.9 K/mm3 (4.0-10.0)
[2022-02-05 10:19] LABS: CALCIUM 9.5 mg/dL (8.5-10.1)
[2022-02-05 10:20] LABS: ALBUMIN 3.7 g/dl (3.4-5.0); BLOOD UREA NITROGEN 16.9 mg/dL (7-18)
[2022-02-05 10:24] LABS: CREATININE 0.8 mg/dL (0.55-1.3)
[2022-02-05 10:25] LABS: TOT PROT 7.2 g/dl (6.4-8.2)
[2022-02-05] MEDS: VANCOMYCIN/WATER 1250 MG 1,250 MG/250 ML BAG IVPB SCH (12:58)
[2022-02-05] MEDS ORDERED: ENOXAPARIN NA (PORCINE) 120 MG/0.8 ML DISP.SYRIN SQ SCH (15:00)
[2022-02-05] MEDS ORDERED: INSULIN SLIDING SCALE (NOVOLOG) 1 VIAL SQ SCH (15:18)
[2022-02-05] MEDS ORDERED: INSULIN (LEVEMIR) 100 UNITS/ML UNITS SQ ONE (15:19)
[2022-02-05] MEDS ORDERED: Insulin (LOG) Aspart 100 UNITS/ML VIAL SQ ONE (17:46)
[2022-02-05] MEDS ORDERED: INSULIN (NOVOLOG) ASPART 100 UNITS/ML 10ML VIAL SQ ONE (18:00)
[2022-02-05] MEDS: ACETAMINOPHEN 325 MG TABLET (FP) PO PRN (20:11)
[2022-02-05] MEDS: ATORVASTATIN CA 40 MG TABLET (FP) PO SCH (21:24)
[2022-02-05 21:48] LABS: INR 1.09 (0.83-1.09); PROTHROMBIN TIME (PATIENT) 12.6 SEC (9.7-13.0)
[2022-02-05] MEDS ORDERED: APIXABAN 5 MG TABLET PO SCH (22:00)
[2022-02-05] MEDS ORDERED: INSULIN (LEVEMIR) 100 UNITS/ML UNITS SQ SCH (22:00)
[2022-02-05] MEDS ORDERED: VANCOMYCIN 1,000 MG in DEXTROSE 5%-WATER - 250 ML IVPB SCH (23:55)
[2022-02-06] MEDS: INSULIN SLIDING SCALE (NOVOLOG) 1 VIAL SQ SCH ×6 (01:17→22:09)
[2022-02-06] MEDS: VANCOMYCIN/WATER 1250 MG 1,250 MG/250 ML BAG IVPB SCH ×3 (01:17→22:59)
[2022-02-06] MEDS ORDERED: PIPERACILLIN/TAZOBACTAM 4.5 GM VIAL IVPB ONE ×3 (01:41→17:59)
[2022-02-06] MEDS ORDERED: DEXTROSE 5%-WATER 100 ML IVPB ONE ×3 (01:41→17:59)
[2022-02-06] MEDS: PIPERACILLIN/TAZOB 4.5 GM 4.5 GM in DEXTROSE 5%-WATER 100 ML IVPB SCH ×3 (03:44→18:01)
[2022-02-06] MEDS ORDERED: INSULIN (LEVEMIR) 100 UNITS/ML UNITS SQ SCH (07:00)
[2022-02-06] MEDS: ACETAMINOPHEN 325 MG TABLET (FP) PO PRN (09:54)
[2022-02-06 13:14] LABS: BASO % 0.9 % (0-2.0); EOS % 2.9 % (0-4.5); HEMATOCRIT 38.6 % (35.4-49); HEMOGLOBIN 13.3 GM/dL (11.7-16.9); LYMPH % 14.9 % (8-40); MCH 32.9 pg (25.7-33.7); MCHC 34.5 g/dl (32.0-35.9); MEAN CELL VOLUME 95.6 fl (80-96); MEAN PLT VOLUME 8.4 fl (7.5-11.1); MONO % 7.5 % (3.8-10.2); NEUT % 73.8 % (42.8-82.8); PLATELET COUNT 247 10^3/uL (134-434); RBC 4.04 M/mm3 (4.00-5.60); RDW 12.5 % (11.9-15.9); WHITE BLOOD COUNT 10.9 K/mm3 (4.0-10.0)
[2022-02-06] MEDS ORDERED: VANCOMYCIN 1,000 MG VIAL (RESTRICTED TO ID ONLY) ONE (13:17)
[2022-02-06] MEDS ORDERED: LIDOCAINE HCL 1%, 10 MG/ML (20ML VIAL) ONE (13:18)
[2022-02-06] MEDS ORDERED: GENTAMICIN SO4 80 MG/2 ML VIAL ONE (13:18)
[2022-02-06] MEDS ORDERED: BUPIVACAINE HCL/PF 0.25% (2.5MG/ML) 10 ML VIAL ONE (13:18)
[2022-02-06 13:20] LABS: INR 1.11 (0.83-1.09); PROTHROMBIN TIME (PATIENT) 12.8 SEC (9.7-13.0)
[2022-02-06 13:34] LABS: ALBUMIN 3.3 g/dl (3.4-5.0); BLOOD UREA NITROGEN 15.8 mg/dL (7-18); CALCIUM 9.1 mg/dL (8.5-10.1)
[2022-02-06 13:37] LABS: CREATININE 0.7 mg/dL (0.55-1.3)
[2022-02-06 13:39] LABS: BILIRUBIN,TOTAL 0.8 mg/dL (0.2-1); TOT PROT 6.5 g/dl (6.4-8.2)
[2022-02-06] MEDS ORDERED: PROPOFOL 20 ML ONE (13:54)
[2022-02-06] MEDS ORDERED: FENTANYL CITRATE/PF 50 MCG/ML VIAL ONE ×4 (13:54→15:47)
[2022-02-06] MEDS ORDERED: MIDAZOLAM HCL 2 MG/2 ML SINGLE DOSE VIAL ONE ×2 (13:54)
[2022-02-06] MEDS ORDERED: CLOPIDOGREL BISULFATE 75 MG TABLET (FP) PO ONE (14:02)
[2022-02-06] MEDS ORDERED: KETAMINE HCL 200 MG/20 ML VIAL ONE (14:39)
[2022-02-06] MEDS ORDERED: LIDOCAINE HCL 1%, 10 MG/ML (20ML VIAL) INF ONE ×2 (14:39→14:42)
[2022-02-06] MEDS ORDERED: BUPIVACAINE HCL/PF 2.5 MG/ML - 30 ML VIAL IJ ONE ×2 (14:39→14:42)
[2022-02-06] MEDS ORDERED: THROMBIN (BOVINE) 5,000 UNIT VIAL TP ONE (14:52)
[2022-02-06] MEDS ORDERED: GENTAMICIN SO4 80 MG/2 ML VIAL IVPB ONE (14:55)
[2022-02-06] MEDS ORDERED: HYDROmorphone HCl 2 MG/ML VIAL IVPB PRN (15:24)
[2022-02-06] MEDS ORDERED: ACETAMINOPHEN 325 MG TABLET (FP) PO PRN (15:24)
[2022-02-06] MEDS ORDERED: ACETAMINOPHEN 1000 MG/100 ML BAG IVPB ONE (15:32)
[2022-02-06 16:09] LABS: EOS % 2.9 % (0-4.5); HEMATOCRIT 37.6 % (35.4-49); HEMOGLOBIN 13.4 GM/dL (11.7-16.9); LYMPH % 14.6 % (8-40); MCHC 35.5 g/dl (32.0-35.9); MEAN CELL VOLUME 95.6 fl (80-96); MEAN PLT VOLUME 7.9 fl (7.5-11.1); MONO % 8.3 % (3.8-10.2); NEUT % 73.2 % (42.8-82.8); PLATELET COUNT 226 10^3/uL (134-434); RBC 3.93 M/mm3 (4.00-5.60); RDW 12.5 % (11.9-15.9); WHITE BLOOD COUNT 10.1 K/mm3 (4.0-10.0)
[2022-02-06] MEDS: ATORVASTATIN CA 40 MG TABLET (FP) PO SCH (22:09)
[2022-02-07] MEDS ORDERED: DEXTROSE 5%-WATER 100 ML IVPB ONE ×3 (01:14→17:26)
[2022-02-07] MEDS ORDERED: PIPERACILLIN/TAZOBACTAM 4.5 GM VIAL IVPB ONE ×3 (01:14→17:25)
[2022-02-07] MEDS: PIPERACILLIN/TAZOB 4.5 GM 4.5 GM in DEXTROSE 5%-WATER 100 ML IVPB SCH ×3 (01:21→17:35)
[2022-02-07] MEDS: INSULIN SLIDING SCALE (NOVOLOG) 1 VIAL SQ SCH ×6 (01:21→20:25)
[2022-02-07] MEDS: INSULIN (LEVEMIR) 100 UNITS/ML UNITS SQ SCH (06:28)
[2022-02-07 11:45] LABS: BASO % 0.9 % (0-2.0); EOS % 2.1 % (0-4.5); HEMATOCRIT 36.6 % (35.4-49); HEMOGLOBIN 12.9 GM/dL (11.7-16.9); LYMPH % 7.6 % (8-40); MCHC 35.2 g/dl (32.0-35.9); MEAN CELL VOLUME 96.6 fl (80-96); MEAN PLT VOLUME 8.5 fl (7.5-11.1); MONO % 8.4 % (3.8-10.2); PLATELET COUNT 217 10^3/uL (134-434); RBC 3.79 M/mm3 (4.00-5.60); RDW 12.5 % (11.9-15.9); WHITE BLOOD COUNT 9.9 K/mm3 (4.0-10.0)
[2022-02-07] MEDS: VANCOMYCIN/WATER 1250 MG 1,250 MG/250 ML BAG IVPB SCH (12:01)
[2022-02-07] MEDS: ATORVASTATIN CA 40 MG TABLET (FP) PO SCH (21:44)
[2022-02-08] MEDS: VANCOMYCIN/WATER 1250 MG 1,250 MG/250 ML BAG IVPB SCH ×3 (00:12→23:22)
[2022-02-08] MEDS: INSULIN SLIDING SCALE (NOVOLOG) 1 VIAL SQ SCH ×6 (00:14→21:30)
[2022-02-08] MEDS ORDERED: DEXTROSE 5%-WATER 100 ML IVPB ONE ×3 (02:53→17:30)
[2022-02-08] MEDS ORDERED: PIPERACILLIN/TAZOBACTAM 4.5 GM VIAL IVPB ONE ×3 (02:53→17:30)
[2022-02-08] MEDS: PIPERACILLIN/TAZOB 4.5 GM 4.5 GM in DEXTROSE 5%-WATER 100 ML IVPB SCH ×3 (02:55→18:04)
[2022-02-08] MEDS: INSULIN (LEVEMIR) 100 UNITS/ML UNITS SQ SCH (06:30)
[2022-02-08] MEDS: ATORVASTATIN CA 40 MG TABLET (FP) PO SCH (21:32)
[2022-02-09] MEDS ORDERED: PIPERACILLIN/TAZOBACTAM 4.5 GM VIAL IVPB ONE (01:28)
[2022-02-09] MEDS ORDERED: DEXTROSE 5%-WATER 100 ML IVPB ONE (01:28)
[2022-02-09] MEDS: INSULIN SLIDING SCALE (NOVOLOG) 1 VIAL SQ SCH ×4 (02:26→13:02)
[2022-02-09] MEDS: PIPERACILLIN/TAZOB 4.5 GM 4.5 GM in DEXTROSE 5%-WATER 100 ML IVPB SCH (02:27)
[2022-02-09] MEDS: INSULIN (LEVEMIR) 100 UNITS/ML UNITS SQ SCH (06:16)
[2022-02-09 07:33] VITALS: TEMP 98.3
[2022-02-09 08:43] LABS: BASO % 0.9 % (0-2.0); EOS % 5.3 % (0-4.5); LYMPH % 17.7 % (8-40); MCH 33.7 pg (25.7-33.7); MCHC 35.1 g/dl (32.0-35.9); MEAN CELL VOLUME 95.9 fl (80-96); MEAN PLT VOLUME 7.9 fl (7.5-11.1); MONO % 13.5 % (3.8-10.2); NEUT % 62.6 % (42.8-82.8); PLATELET COUNT 255 10^3/uL (134-434); RBC 4.17 M/mm3 (4.00-5.60); RDW 12.7 % (11.9-15.9); WHITE BLOOD COUNT 8.5 K/mm3 (4.0-10.0)
[2022-02-09] MEDS ORDERED: INSULIN (NOVOLOG) ASPART 100 UNITS/ML 10ML VIAL ONE (08:59)
[2022-02-09 09:09] LABS: ALBUMIN 3.2 g/dl (3.4-5.0); BLOOD UREA NITROGEN 12.1 mg/dL (7-18)
[2022-02-09 09:12] LABS: CREATININE 0.7 mg/dL (0.55-1.3)
[2022-02-09 09:13] VITALS: BP 141/74; PULSE 88
[2022-02-09 09:13] LABS: TOT PROT 6.9 g/dl (6.4-8.2)
[2022-02-09 09:14] LABS: BILIRUBIN,TOTAL 0.5 mg/dL (0.2-1)
[2022-02-09 09:31] LABS: ERYTHROCYTE SEDIMENTATION RATE 42 mm/hr (0-20)
[2022-02-09] MEDS ORDERED: ERTAPENEM SODIUM 1 GM in SODIUM CHLORIDE 50 ML IVPB SCH (10:00)
[2022-02-09] MEDS: VANCOMYCIN/WATER 1250 MG 1,250 MG/250 ML BAG IVPB SCH (11:34)
[2022-02-09] MEDS ORDERED: AMOXICILLIN 500 MG CAPSULE (FP) PO SCH (22:00)
== END 2022-02-09 14:26 | disposition home health service (06) | DRG 580 ==
LOC: JER 11:02 → JERBED 12:49 → J8W 02-03 09:38
PROVIDERS: ADMIT Family Medicine; ATTEND Family Medicine
PROC: 0JCQ0ZZ Extirpation of Matter from Right Foot Subcutaneous Tissue and Fascia, Open Approach (ICD-10-PCS; 2022-02-06)
PROC: 02HV33Z Insertion of Infusion Device into Superior Vena Cava, Percutaneous Approach (ICD-10-PCS; 2022-02-06)
PROC: B518ZZA Fluoroscopy of Superior Vena Cava, Guidance (ICD-10-PCS; 2022-02-06)
PROC: 3E10X8Z Irrigation of Skin and Mucous Membranes using Irrigating Substance (ICD-10-PCS; 2022-02-06)
PROC: 0Y9M0ZZ Drainage of Right Foot, Open Approach (ICD-10-PCS; principal; 2022-02-06 12:58)
DX: L03.115 Cellulitis of right lower limb (principal); L02.611 Cutaneous abscess of right foot; I10 Essential (primary) hypertension; E78.5 Hyperlipidemia, unspecified; S91.341A Puncture wound with foreign body, right foot, initial encounter; B96.89 Other specified bacterial agents as the cause of diseases classified elsewhere; B95.2 Enterococcus as the cause of diseases classified elsewhere; W45.0XXA Nail entering through skin, initial encounter; Y93.89 Activity, other specified; Y92.89 Other specified places as the place of occurrence of the external cause; H54.61 Unqualified visual loss, right eye, normal vision left eye; R94.31 Abnormal electrocardiogram [ECG] [EKG]; R07.89 Other chest pain; E11.610 Type 2 diabetes mellitus with diabetic neuropathic arthropathy
CPT/HCPCS: 36415; 36569; 73610-TC-RT-FY; 73630-TC-LT; 73630-TC-RT-FY; 73720-TC; 76882-TC-RT-FY; 80053; 82962; 83036; 85025; 85027; 85610; 85651; 86140; 87070; 87075; 87186; 87205; 93922; 93926-TC; 94760; 99285-25; A9579; C9803-CS; G0480; J1644; U0003; U0005

== ENCOUNTER 2022-02-22 13:50 | Emergency (ER) | payer BC, OTHER ==
[2022-02-22 14:34] VITALS: BP 108/68; PULSE 82; TEMP 96.3; BMI 30.2
== END 2022-02-22 17:20 | disposition home or self-care (01) ==
LOC: JER 13:50
PROC: 3E033GC Introduction of Other Therapeutic Substance into Peripheral Vein, Percutaneous Approach (ICD-10-PCS; principal; 2022-02-22)
DX: T82.898A Other specified complication of vascular prosthetic devices, implants and grafts, initial encounter (principal)
CPT/HCPCS: 99284-25

== ENCOUNTER 2023-02-23 03:55 | Day surgery (SDC) | payer OTHER ==
[2023-02-22 08:47] VITALS: BMI 30.2
[2023-02-23 07:58] VITALS: RESP 20
[2023-02-23] MEDS ORDERED: MIDAZOLAM HCL 2 MG/2 ML SINGLE DOSE VIAL ONE (10:01)
[2023-02-23] MEDS ORDERED: ceFAZolin SODIUM 1 GM VIAL IVPB ONE (10:36)
[2023-02-23] MEDS ORDERED: LIDOCAINE HCL 1%, 10 MG/ML (20ML VIAL) NR ONE (10:45)
[2023-02-23] MEDS ORDERED: BUPIVACAINE HCL/PF 0.5% (5 MG/ML) 30 ML VIAL IJ ONE (10:45)
[2023-02-23] MEDS ORDERED: PROPOFOL 20 ML ONE (10:47)
[2023-02-23 17:41] VITALS: BP 142/72; PULSE 65; TEMP 98
== END 2023-02-23 13:15 | disposition home or self-care (01) ==
LOC: JASU-SURG 03:55
PROVIDERS: ATTEND Orthopaedic Surgery
PROC: 0LN70ZZ Release Right Hand Tendon, Open Approach (ICD-10-PCS; principal; 2023-02-23 09:30)
DX: M65.321 Trigger finger, right index finger (principal)
CPT/HCPCS: 82962; 88304-TC